=== PATIENT | female | born 1995 | race Asian ===

== ENCOUNTER 2024-03-30 21:20 | Inpatient (IN) ==
[2024-03-31] MEDS ORDERED: Nalbuphine 10 MG/ML 1 ML VIAL IV PRN (00:22)
[2024-03-31] MEDS ORDERED: Lidocaine 1% VIAL 10 MG/ML 30 ML VIAL INJ PRN (00:22)
[2024-03-31] MEDS ORDERED: Prochlorperazine 5 mg/ml 2 ml VIAL (10 mg) IV PRN (00:22)
[2024-03-31] MEDS: Lactated Ringers 1000 ml BAG 1,000 ML IV ONE ×2 (00:29→02:30)
[2024-03-31] MEDS: Buffered Lidocaine 1% SYRIN 1 ml INTRADERM ONE (00:42)
[2024-03-31 00:43] LABS: ABS Basophils 0.1 10^3/uL (0.0-0.1); ABS Eosinophils 0.4 10^3/uL (0.0-0.5); ABS Lymphocytes 1.6 10^3/uL (1.0-4.8); ABS Neutrophils 9.5 10^3/uL (1.5-7.6); ABS Nucleated RBC 0.01 10^3/ul; Eosinophil % 3.4 %; Hematocrit 32.8 % (35-45); Hemoglobin 10.4 g/dL (11.5-14.3); Lymphocyte % 12.6 %; Mean Corpuscular Hgb Conc 31.8 g/dL (31-36); Mean Corpuscular Volume 78.6 fL (80-97); Mean Platelet Volume 7.2 fL (7.5-11.2); Nucleated Red Blood Cells % 0.1 %/100WBC (0.0-0.8); Platelet Count 380 10^3/uL (150-450); Red Blood Count 4.18 10^6/uL (3.63-4.92); Red Cell Distribution Width 15.8 % (12-17); White Blood Count 12.5 10^3/uL (3.8-11.8)
[2024-03-31 00:57] LABS: Urine Benzodiazepine Screen None Detected (None Detect); Urine Cannabinoids Screen None Detected (None Detect); Urine Opiates Screen None Detected (None Detect)
[2024-03-31] MEDS: OBEPIDURAL (200 ML) 200 ML EPIDURAL ONE ×2 (01:35→01:48)
[2024-03-31] MEDS ORDERED: Phenylephrine 40 mcg/mL 10mL (400mcg) SYRINGE IV PUSH PRN ×2 (01:46)
[2024-03-31] MEDS ORDERED: Sodium Citrate/Citric Acid LIQ 15 ML UDC PO PRN (01:46)
[2024-03-31] MEDS: Lidocaine 1.5% EPI 1:200,000 30 ML SDV ONE (01:47)
[2024-03-31] MEDS: OBEPIDURAL (200 ML) 200 ML EPIDURAL SCH (01:52)
[2024-03-31] MEDS: Lactated Ringers 1000 ml BAG 1,000 ML IV SCH ×2 (02:13→02:31)
[2024-03-31] MEDS: Phenylephrine 40 mcg/mL 10mL (400mcg) SYRINGE ONE (04:19)
[2024-03-31] MEDS: Calcium Carb (TUMS) 500 mg CHEW TAB PO PRN (04:32)
[2024-03-31 05:00] LABS: Urine Appearance Clear; Urine Bilirubin Negative (Negative); Urine Blood Negative (Negative); Urine Color Light-Yellow; Urine Glucose Negative (Negative); Urine Ketones 2+ (Negative); Urine Nitrite Negative (Negative); Urine Protein Negative (Negative); Urine Specific Gravity 1.014 (1.002-1.030); Urine Urobilinogen Negative (Negative); Urine pH 6.5 (5.0-8.0)
[2024-03-31] MEDS ORDERED: Glycerin ADULT 2.4 gm SUPP PR PRN (07:13)
[2024-03-31] MEDS: Oxytocin in LR 20,000 MILLI.UNIT/1,000 ML BAG IV SCH (07:46)
[2024-03-31] MEDS: Witch Hazel PAD JAR TOPICAL PRN (07:47)
[2024-03-31] MEDS: Dibucaine 1% OINT 28.35 GM TUBE PR PRN (07:47)
[2024-03-31] MEDS ORDERED: Lactated Ringers 1000 ml BAG 1,000 ML IV SCH (08:00)
[2024-03-31] MEDS: Oxytocin in LR 20,000 MILLI.UNIT/1,000 ML BAG IV ONE (20:07)
[2024-04-01 07:02] LABS: ABS Eosinophils 0.4 10^3/uL (0.0-0.5); ABS Lymphocytes 1.7 10^3/uL (1.0-4.8); ABS Monocytes 1.1 10^3/uL (0.0-0.9); ABS Neutrophils 10.8 10^3/uL (1.5-7.6); ABS Nucleated RBC 0.01 10^3/ul; Eosinophil % 2.7 %; Hematocrit 19.3 % (35-45); Hemoglobin 6.2 g/dL (11.5-14.3); Mean Corpuscular Hemoglobin 25.4 pg (27-33); Mean Corpuscular Hgb Conc 32.2 g/dL (31-36); Mean Corpuscular Volume 78.8 fL (80-97); Platelet Count 262 10^3/uL (150-450); Red Blood Count 2.45 10^6/uL (3.63-4.92); Red Cell Distribution Width 15.6 % (12-17)
[2024-04-01 13:24] LABS: Red Blood Count 2.75 10^6/uL (3.63-4.92); White Blood Count 15.7 10^3/uL (3.8-11.8)
[2024-04-01 13:25] LABS: Hematocrit 21.8 % (35-45); Hemoglobin 6.9 g/dL (11.5-14.3); Mean Corpuscular Hemoglobin 25.1 pg (27-33); Mean Corpuscular Hgb Conc 31.7 g/dL (31-36); Mean Corpuscular Volume 79.1 fL (80-97); Mean Platelet Volume 6.9 fL (7.5-11.2); Platelet Count 286 10^3/uL (150-450); Red Cell Distribution Width 15.8 % (12-17)
[2024-04-02 08:16] VITALS: BP 103/67
== END 2024-04-02 13:02 | disposition home or self-care (01) | DRG 560 ==
LOC: MCHOBOUT 21:20 → MCHOB 03-31 00:21
PROVIDERS: ADMIT Obstetrics & Gynecology; ATTEND Obstetrics & Gynecology